=== PATIENT | female | born 1995 | race Caucasian/White ===

== ENCOUNTER 2020-05-10 10:11 | Emergency (ER) | payer OTHER, SELFPAY ==
[2020-05-10 10:14] VITALS: BP 155/105; PULSE 129; RESP 18; TEMP 37.1; O2SAT 99; BMI 19.8
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
[2020-05-10 10:54] VITALS: BP 147/84; PULSE 100; RESP 18; O2SAT 100
[2020-05-10 11:00] LABS: Glucose Urine UA NEG (NEG); Leukocyte Esterase Urine NEG (NEG); Nitrite Urine NEG (NEG); PH 5.5 (5.0-8.0); Specific Gravity - Urine >= 1.030 (1.005-1.025); Urine Blood NEG (NEG); Urine Ketones NEG (NEG); Urine Protein NEG (NEG-TRACE)
[2020-05-10 11:12] LABS: Appearance Urine CLEAR; Color Urine YELLOW; UPreg QC Valid YES; Urine Pregnancy POSITIVE (NEGATIVE)
== END 2020-05-10 11:05 | disposition home or self-care (01) ==
PROVIDERS: Emergency Provider Emergency Medicine; PCP Physician Assistant Medical
DX: Z04.2 Encounter for examination and observation following work accident (principal); O9A.211 Injury, poisoning and certain other consequences of external causes complicating pregnancy, first trimester; R10.9 Unspecified abdominal pain; Z3A.01 Less than 8 weeks gestation of pregnancy
CPT/HCPCS: 81003; 81025; 99282; 99284